=== PATIENT | female | born 1945 | race Caucasian/White ===

== ENCOUNTER 2018-10-23 07:56 | Inpatient (IN) | payer OTHER ==
[~2018-10-23] VITALS: Ht 160 cm; Wt 83.5 kg
[~2018-10-23 07:56] MED LIST: AVAPRO300 MG PO; CARVEDILOL25 MG PO; CELEBREX100 MG PO; CRESTOR20 MG PO; DICLOFENAC SODI50 MG PO; GABAPENTIN800 MG; HUMALOG MIX 75/23 ML SQ; LANTUS100 U/ML SQ; LOPERAMIDE2 MG; PREDNISONE5 MG/DOSE- PO; PRILOSEC20 MG PO; SKELAXIN800 MG PO; SYNTHROID125 MCG PO; TORSEMIDE10 MG PO; ULTRAM ER100 MG PO; VARSARTAN; [UNRECOGNIZED DRUG - OTHER]; [UNRECOGNIZED DRUG - OTHER] PO
[2018-10-23] MEDS ORDERED: ENALAPRIL MALEA25 GM (08:19)
--- NOTE | 2018-10-23 08:19 | NUR ---
SE RECIBE PACIENTE ALERTA Y ORIENTADA REFIERE TENER DIFICULTA RESPIRATORIA Y TOS PERSISTENTE. INDICA ESTOS SINTOMAS COMENZARON HACE VARIOS CRAWFORD.
--- NOTE | 2018-10-23 08:53 | NUR ---
PACIENTE ALERTA Y ORIENTADA EVALUADA POR EL DR. BAILEY SE ORIENTA A PACIENTE SOBRE TRATAMIENTO MEDICO SE EXTRAN MUESTRAS DE CRIS Y SE ADMINISTRAN MEDICAMENTOS MARCO A ORDEN MEDICA BAJO MEDIDAS ASEPTICAS. SE NOTIFICA A TERAPIA RESPIRATORIA ABG Y TERAPIAS DE PACIENTE.
--- NOTE | 2018-10-23 11:32 | NUR ---
PACIENTE ALERTA Y ORIENTADA X3. SE ORIENTA SOBRE MUESTRAS A REALIZAR Y REFIERE ENTENDER. SE REALIZA MUESTRAS DE LABORATORIO BAJO MEDIDAS ASEPTICAS.
[2018-10-25] MEDS ORDERED: GEMFIBROZIL600 MG PO (08:51)
[2018-10-25] MEDS ORDERED: DIOVAN160 M1 PO (08:52)
[2018-10-25] MEDS ORDERED: ARICEPT10 MG PO (08:52)
[2018-11-03] MEDS ORDERED: Tussi-Organidin Dm-S PO (10:08)
== END 2018-11-03 10:33 | disposition home or self-care (01) | DRG 291 ==
LOC: ER 07:56 → MEDJ 18:11
PROVIDERS: ADMIT Internal Medicine
PROC: 4A033R1 Measurement of Arterial Saturation, Peripheral, Percutaneous Approach (ICD-10-PCS; principal; 2018-10-23)
PROC: BB24ZZZ Computerized Tomography (CT Scan) of Bilateral Lungs (ICD-10-PCS; 2018-10-23)
PROC: 3E0F7GC Introduction of Other Therapeutic Substance into Respiratory Tract, Via Natural or Artificial Opening (ICD-10-PCS; 2018-10-23)
PROC: B246ZZZ Ultrasonography of Right and Left Heart (ICD-10-PCS; 2018-10-24)
PROC: 30233N1 Transfusion of Nonautologous Red Blood Cells into Peripheral Vein, Percutaneous Approach (ICD-10-PCS; 2018-11-01)
DX: I13.0 Hypertensive heart and chronic kidney disease with heart failure and stage 1 through stage 4 chronic kidney disease, or unspecified chronic kidney disease (principal); J16.8 Pneumonia due to other specified infectious organisms; J45.901 Unspecified asthma with (acute) exacerbation; N18.9 Chronic kidney disease, unspecified; I25.10 Atherosclerotic heart disease of native coronary artery without angina pectoris; E11.21 Type 2 diabetes mellitus with diabetic nephropathy; I50.89 Other heart failure; Z95.1 Presence of aortocoronary bypass graft; D63.1 Anemia in chronic kidney disease